=== PATIENT | male | born 1960 | race Caucasian/White ===

== ENCOUNTER → 2017-12-27 07:59 | Outpatient (CLI) | payer MEDICAID, SELFPAY | DX: I25.10 Atherosclerotic heart disease of native coronary artery without angina pectoris (principal); I25.5 Ischemic cardiomyopathy | CPT/HCPCS: 93306; Q9957; A4216; C8929 ==

== ENCOUNTER → 2018-02-27 09:08 | Outpatient (CLI) | payer MEDICAID, SELFPAY ==
[2018-02-27 11:10] LABS: AST(SGOT) 19 U/L (15-37); Alanine Aminotransfer ALT/SGPT 27 U/L (16-61); Albumin, Serum 3.8 g/dL (3.2-5.0); Alkaline Phosphatase 70 U/L (45-117); Bilirubin, Direct 0.11 mg/dL (0.00-0.30); CPK Total, Creatine Kinase 101 U/L (39-308); Cholesterol 131 mg/dL (200); Globulin 3.4 g/dL (2.2-4.2); High Density Lipoprotein 38 mg/dL; Protein, Total 7.2 g/dL (6.4-8.2); Triglycerides 143 mg/dL; Very Low Density Lipoprotein 29 mg/dL (5-40)
== END ==
DX: I25.10 Atherosclerotic heart disease of native coronary artery without angina pectoris (principal)
CPT/HCPCS: 36415; 80061; 80076; 82550

== ENCOUNTER → 2019-03-13 10:35 | Outpatient (CLI) | payer MEDICAID, SELFPAY ==
[2019-03-13 10:57] LABS: Hematocrit 43.3 % (40-54); Hemoglobin 14.4 g/dL (13.0-16.5); Mean Corp Hgb Conc 33.3 g/dL (32-36); Mean Corpuscular Hgb 28.8 pg (27.0-32.0); Mean Corpuscular Volume 86.6 fL (80-94); Mean Platelet Vol. 8.7 fl (6.2-12.0); Platelet Count 352 K/mm3 (150-450); RBC Distribution Width CV 13.2 % (11.6-14.6); RBC Distribution Width SD 41.4 fl (35.1-43.9); White Blood Count 8.6 K/mm3 (4.4-11.0)
[2019-03-13 11:30] LABS: AST(SGOT) 15 U/L (15-37); Alanine Aminotransfer ALT/SGPT 21 U/L (16-61); Albumin, Serum 3.8 g/dL (3.2-5.0); Alkaline Phosphatase 76 U/L (45-117); Anion Gap 7 (5-15); BUN 15 mg/dL (7-18); BUN/Creat Ratio 9.7 RATIO (10-20); Bilirubin, Direct 0.14 mg/dL (0.00-0.30); Calcium,Total 8.5 mg/dL (8.5-10.1); Chloride 106 mmol/L (98-107); Cholesterol 118 mg/dL (200); Creatinine, Serum 1.55 mg/dL (0.70-1.30); EST Glomerular Filtration Rate 49 mL/min (>60); Est Glom Filt Rate - Afr Amer 59 mL/min (>60); Globulin 3.3 g/dL (2.2-4.2); Glucose 98 mg/dL (74-106); High Density Lipoprotein 36 mg/dL; Potassium 4.6 mmol/L (3.5-5.1); Protein, Total 7.1 g/dL (6.4-8.2); Sodium Level 138 mmol/L (136-145); Thyroid Stim Hormone (TSH) 2.42 uIU/mL (0.358-3.74); Triglycerides 145 mg/dL; Very Low Density Lipoprotein 29 mg/dL (5-40)
== END ==
DX: E78.00 Pure hypercholesterolemia, unspecified (principal); I25.5 Ischemic cardiomyopathy; R53.82 Chronic fatigue, unspecified
CPT/HCPCS: 36415; 80048; 80061; 80076; 84443; 85027

== ENCOUNTER 2019-10-20 10:34 | Emergency (ER) | payer MEDICAID, SELFPAY ==
[2019-10-20 10:36] VITALS: BP 104/50; PULSE 78; RESP 16; TEMP 36.6; O2SAT 96; BMI 28.2
--- NOTE | 2019-10-20 11:06 | ED.DCSUM_ITS ---
- ER Visit Summary Date of Service: 10/20/19 Chief Complaint: Urinary frequency History of Present Illness: The patient is a 59 M who presents with urinary frequency that is been getting worse over the past 3 days. Patient also admits to some dysuria. Patient denies any hematuria. Patient admits to some pressure in his perineum. Patient states his pain is worse whenever he urinates. Patient states he has been having difficulty sleeping due to the urinary frequency. Patient denies any fevers or chills. Patient denies any nausea or vomiting. Patient denies any flank pain. Patient denies any abdominal pain. Patient denies any chest pain or shortness of breath. Physical Examination: Vital signs are stable. Patient is afebrile. Patient is in no acute distress. Oral mucosa is pink and moist. Neck is supple. Trachea is midline. There is no JVD noted. Heart was regular rate and rhythm. Lungs are clear and equal bilaterally. Abdomen is soft. Bowel sounds are normal. There is no tenderness. There is no rebound or guarding noted. Skin is warm dry. Cranial nerves II through XII are intact. There are no focal motor or sensory deficits noted. Extremities are intact. There is no calf tenderness or edema. Test Results: Urinalysis was ordered. Leukocyte esterase was 500 with positive nitrates. Occult blood was 250. There are 50-100 white blood cells and 25-50 red blood cells. Urine culture was ordered. Emergency Department Course and Treatment: Patient was given a dose of Bactrim here. Patient was given a prescription for Bactrim. Patient was referred to a primary care physician for follow-up care in 5 to 7 days. Patient understood and was agreeable with the plan. All questions were answered. Disposition: Discharge home Impression: Urinary tract infection This note was generated with [employer] dictation software. It may contain incorrect words, spelling, and punctuation that were not noted in review of the chart prior to signing ED Disposition - Plan for ED Patient: Disposition: Home or Assisted Living Diagnosis: Urinary tract infection Instructions: ED CYSTITIS Male Adult Prescriptions: Smz/Tmp Ds [Bactrim Ds] 1 tab PO BID #6 tab Prescription Printed Referrals: Kasandra Agosto MD [STAFF PHYSICIAN] - 5-7 Days
[2019-10-20 11:16] LABS: Mucous, Urine 0 SEEN /hpf (<or=2+)
[2019-10-20 11:17] LABS: Color, Urine Yellow (Yellow); Glucose, Dipstick Normal (Normal); Ketone-Dipstick 5 mg/dl (Negative); Leukocyte Esterase-Dipstick 500 /ul (Negative); Nitrite-Dipstick Positive (Negative); Occult Blood-Urine 250 /ul (Negative); Protein-Dipstick 100 mg/dl (Negative); Specific Gravity, Urine 1.025 (1.002-1.030); Urine Bilirubin Dipstick Negative (Negative); Urine Clarity Cloudy (Clear); Urine Urobilinogen Normal (Normal)
[2019-10-20 11:28] LABS: Bacteria 1+ /hpf (None Seen); Red Blood Cells-Urine 25-50 SEEN /hpf (0-5); Squamous Epithelial Cells - UA 0-5 SEEN /hpf (0-5); White Blood Cells 50-100 SEEN /hpf (0-5)
[2019-10-20 12:34] VITALS: BP 124/77; PULSE 68; RESP 15; O2SAT 98
[2019-10-20] MEDS: Smz/Tmp Ds Tablet 1 TABLET PO (12:35)
== END 2019-10-20 12:35 | disposition home or self-care (01) ==
PROVIDERS: Emergency Provider Emergency Medicine
DX: N39.0 Urinary tract infection, site not specified (principal); I10 Essential (primary) hypertension; E78.00 Pure hypercholesterolemia, unspecified; Z79.899 Other long term (current) drug therapy
CPT/HCPCS: 81001; 99283

== ENCOUNTER 2019-12-02 07:38 | Observation (INO) | payer MEDICAID, SELFPAY ==
[2019-12-02] VITALS (12 sets, daily range): BP systolic 97–144; BP diastolic 60–85; PULSE 60–89; RESP 12–18; TEMP 36–37.1; O2SAT 92–98; BMI 28.2
--- NOTE | 2019-12-02 | CALC_PTH ---
PATIENT: KAIDEN MILLER LOC: MS3 U#:[id number] AGE/SX: 59/M ROOM: GA318 RE12/02/[address]: Dr. Román German MD : 1960 BED: 1 DIS: 12/03/2019 SPEC #: [id number] RECD: 12/02/19 16:16 STATUS: ULISSES JOE #: [id number] WARREN: 12/02/19 00:[address]: Domingo Nelson DEPT: SURGICAL PATHOLOGY RECD BY: Kulwant Vigil ENTERED: 12/03/19 09:32 SP TYPE: Calculi OTHR DR: MD Dr. Antonella Tay MD Dr. Prakash Chand, MD Tissues: CALCULI Procedures: Surgery Specimen Level I HEADER OPERATION: Cysto, insertion stent, left ureteroscopy, laser left ureter PRE-OP DIAGNOSIS: Obstructing left ureteral calculi TISSUE SUBMITTED: Renal calculi RICARDO DIAGNOSIS Fragments of stone, clinically left ureteral calculi submitted for analysis. MARTHA:rene 12/03/19 COMMENT The calculus is submitted in its entirety for chemical stone analysis. The results from this study will be reported separately. GROSS DESCRIPTION Received is one container labeled with the patient's name and designated renal calculi. The specimen consists of two fragments of brownish-black stone measuring 0.5 x 0.3 x 0.3 cm. The entire specimen is submitted for stone analysis. / MARTHA:rene 12/03/19 CPT: 59965
--- NOTE | 2019-12-02 07:56 | CT_ITS ---
STUDY: CT ABDOMEN AND PELVIS WITHOUT CONTRAST REASON FOR EXAM: Male, 59 years old. BILAT FLANK PAIN, DYSURIA, URINARY FREQUENCY, PREV SD WITH CABG RADIATION DOSAGE (If Supplied By Facility): CTDIvol = ( 14.62 ) mGy, DLP = ( 702.35 ) mGycm TECHNIQUE: Transaxial images were obtained from the dome of the diaphragm to the symphysis pubis without oral contrast, and without intravenous contrast. Sagittal and coronal images were reconstructed. Individualized dose optimization techniques were used for this CT. COMPARISON: None. FINDINGS: The visualized lung bases are unremarkable. The visualized portions of the heart are within normal limits. Scattered low density nodules are seen throughout the liver suggestive of a multiple small cysts. The largest cyst measures 2.4 cm x 2.3 cm and is along the inferior medial portion of the right lobe of the liver. Normal gallbladder and extrahepatic biliary system. Normal spleen. Normal pancreas. Normal bilateral adrenal glands. There is a 6.9 mm calculus in the lower pole calyx of the right kidney. There is also evidence of a 2.1 cm x 2.4 cm cyst in the inferior lateral portion of the right kidney. There is a marked degree of left hydronephrosis and hydroureter due to a 1.3 cm x 0.8 cm calculus at the left ureterovesical junction. There is a moderate-sized hiatal hernia. Normal small intestine. There are multiple colonic diverticula consistent with diverticulosis. The appendix is visualized and appears normal. There is diffuse atherosclerotic calcification of the abdominal aorta and its major visceral branches, without a demonstrated aneurysm. Normal inferior vena cava. Normal retroperitoneum. Normal urinary bladder. There is enlargement of the prostate gland. It measures 4 cm x 3.5 cm. Normal abdominal wall. There are mild degenerative changes of the visualized lumbar spine. There is evidence of a spondylolysis of the pars interarticularis of the L5 vertebrae. CT/Abdomen/Pelvis without Cont IMPRESSION: 1.3 cm x 0.8 cm calculus at the left ureterovesical junction causing moderate degree of left hydronephrosis and hydroureter. Right renal cyst and a nonobstructive intrarenal calculus. Multiple hepatic cysts. Electronically Signed: Pernell Sin, at 8:54 EDT , Service support ,
[2019-12-02 08:03] LABS: Absolute Neutrophil Count 8.9 X10^3/uL (2.0-7.7); Basophil# 0.11 X10^3/uL; Basophil% 0.9 % (0-1); Eosinophil# 0.21 X10^3/uL; Eosinophils% 1.7 % (0-5); Hematocrit 37.2 % (40-54); Hemoglobin 12.2 g/dL (13.0-16.5); Lymphocyte % 13.2 % (19-41); Mean Corp Hgb Conc 32.8 g/dL (32-36); Mean Corpuscular Hgb 28.6 pg (27.0-32.0); Mean Corpuscular Volume 87.1 fL (80-94); Monocyte# 1.27 X10^3/uL; Monocyte% 10.5 % (0-10); NRBC Flagged by Analyzer 0 % (0-5); Neutrophil # 8.87 X10^3/uL (2.7-7.7); Platelet Count 580 K/mm3 (150-450); RBC Distribution Width CV 13.5 % (11.6-14.6); RBC Distribution Width SD 42.7 fl (35.1-43.9); Red Blood Count 4.27 M/mm3 (4.6-6.2); White Blood Count 12.1 K/mm3 (4.4-11.0)
[2019-12-02 08:11] LABS: Anion Gap 6 (5-15); BUN 22 mg/dL (7-18); BUN/Creat Ratio 16.4 RATIO (10-20); Calcium,Total 9.2 mg/dL (8.5-10.1); Chloride 102 mmol/L (98-107); Creatinine, Serum 1.34 mg/dL (0.70-1.30); EST Glomerular Filtration Rate 58 mL/min (>60); Est Glom Filt Rate - Afr Amer 70 mL/min (>60); Estimated Creatinine Clearance 69.01 ml/min; Glucose 106 mg/dL (74-106); Potassium 4.3 mmol/L (3.5-5.1); Sodium Level 136 mmol/L (136-145)
[2019-12-02 08:24] LABS: Color, Urine Yellow (Yellow); Glucose, Dipstick Normal (Normal); Ketone-Dipstick Negative (Negative); Leukocyte Esterase-Dipstick 500 /ul (Negative); Mucous, Urine 0 SEEN /hpf (<or=2+); Nitrite-Dipstick Positive (Negative); Occult Blood-Urine 150 /ul (Negative); Protein-Dipstick 30 mg/dl (Negative); Urine Bilirubin Dipstick Negative (Negative); Urine Clarity Sl. Cloudy (Clear); Urine Urobilinogen Normal (Normal)
[2019-12-02 08:33] LABS: Bacteria 1+ /hpf (None Seen); Red Blood Cells-Urine 10-25 SEEN /hpf (0-5); Squamous Epithelial Cells - UA 0-5 SEEN /hpf (0-5); White Blood Cells 50-100 SEEN /hpf (0-5)
--- NOTE | 2019-12-02 08:45 | ED.RN ---
DR FONTANA PAGED THROUGH THE MEDICAL RECORDS SPECIALIST
--- NOTE | 2019-12-02 08:57 | ED.DCSUM_ITS ---
- ER Visit Summary Date of Service: 12/02/19 Chief Complaint: [Dysuria, back pain] History of Present Illness: The patient is a 59 M [resents to the emergency department with symptoms for over 2 months. Patient states that he has been on several rounds of antibiotics without resolution of symptoms. Patient states that he was attempting to see a urologist however he did not have a primary care physician and required a referral therefore he was unable to see urology. Patient states that he is been having a hard time sleeping at night secondary the pain. He has had some intermittent chills. He denies any fevers. Patient does have history of chronic back pain and history of coronary artery disease. Patient's had prior CABG. He has no known drug allergies. Patient states that he believes he has a kidney stone although he is never had them before.] Physical Examination: [HESHAREE-PERRLA, EOMI. Cranial nerves II through XII grossly intact. TMs clear. Mucous membranes moist. No adenopathy. Cardiovascular-regular rate and rhythm without murmur or ectopy Lungs-clear to auscultation, chest wall stable without crepitus or subcu emphysema Abdomen-normoactive bowel sounds, soft, nontender, no rebound or rigidity, no peritoneal signs. Back exam-no tenderness on palpation of the thoracic or lumbar spine. He does have some CVA tenderness on the left. Negative straight leg raises. Deep tendon reflexes plus 2 out of 4 bilaterally at the patella and Achilles. Extremities-intact ?4, normal range of motion, normal pulses, atraumatic] Test Results: [CBC with differential obtained showed a slightly elevated white count 12.1, hemoglobin 12, hematocrit 37, platelets 580. Chemistries unremarkable. BUN 22 and creatinine 1.34. Urinalysis is positive for 500 cassette esterase as well as nitrites. Patient had 50-100 WBCs as well as 10-25 RBCs and +[address] flank obtained read by myself and awaiting official report from radiology however patient is noted to have a 12.5 mm stone at the left UVJ with severe hydroureter and hydronephrosis. Patient also noted to have some thickening of the bladder wall which may be related to infectious process.] Emergency Department Course and Treatment: [IV line was established. Patient did not want a thing for pain initially. Patient was given Rocephin 1 g IV.] Treatment Plan: [Patient was discussed with urology who will have me admit patient to the hospitalist and he will be placed on the schedule for later today to have a stent placed.] Disposition: [Admit] Impression: [Urinary tract infection Left ureteral stone with obstruction and hydroureter/hydronephrosis] This note was generated with [employer] dictation software. It may contain incorrect words, spelling, and punctuation that were not noted in review of the chart prior to signing ED Disposition - Plan for ED Patient: Referrals: Antonella Juniro MD [Primary Care Provider] -
[2019-12-02] MEDS: 0.9% Normal Saline 1,000 ML 125 ML IV (09:10)
--- NOTE | 2019-12-02 09:12 | PCM.HP.STD ---
Problem List (1) Ureteral calculus, left Status: Acute (2) Shoulder injury Status: Acute Qualifiers: Encounter type: initial encounter Laterality: left Qualified Code(s): S49.92XA - Unspecified injury of left shoulder and upper arm, initial encounter; S49.92XA - Unspecified injury of left shoulder and upper arm, initial encounter (3) CAD (coronary artery disease) Status: Acute (4) Chest pain Status: Acute (5) Hydronephrosis of left kidney Status: Acute History of Present Illness Date of Admission: 12/02/19 Chief Complaint: UTI The patient is a 59 year old M with no prior history of kidney stone came to ER with back pain for last 2 months. Patient complain of right lumbar back pain and also left back pain. Patient also increased frequency, urgency and dysuria intermittently for 2 months. Mild chills but no fever. No family history of kidney stone. Patient denies history of parathyroidism. In the ED, CT shows 1.3 x 0.8 similar calculus at the left UV junction causing moderate degrees of left hydronephrosis and hydroureter. Right renal cyst and nonobstructive intrarenal calculus in left lower pole calyx. Patient was taken to the OR and was found obstructive ureteric calculi impacted. Had left ureteroscopy, laser lithotripsy of stone, basket extraction of fragments and left retrograde pyelogram and left stent placement. On IV ceftriaxone started in ER. Past Medical History Medical History: Medical History (Last Reviewed 12/02/19 @ 10:[address] Domingo Nelson MD) Heart disease I51.9 Allergies sulfamethoxazole [From Bactrim] Adverse Reaction (Verified 12/02/19 07:53) INTERACTS WITH BP AND HEART MEDS / DID NOT WORK trimethoprim [From Bactrim] Adverse Reaction (Verified 12/02/19 07:53) INTERACTS WITH BP AND HEART MEDS / DID NOT WORK Home Medications: Ambulatory Orders Medication Instructions Recorded Aspirin [Aspirin, Baby] 81 mg PO DAILY@0800 08/11/14 Carvedilol [Coreg] 3.125 mg PO BID 08/11/14 Lisinopril [Zestril] 5 mg PO DAILY 08/11/14 Nitroglycerin (INPATIENT USE) 0.4 mg SUBLINGUAL Q5M PRN 08/11/14 [Nitrostat] Rosuvastatin Calcium [Crestor] 40 mg PO DAILY 10/20/19 Surgical History: Surgical History (Last Reviewed 12/02/19 @ 10:[address] Domingo Nelson MD) History of heart bypass surgery Z95.1 Surgical History: herniorrhaphy, - - nose, lip and thumb reattached. Hemmoroid drained x 2. Smoking Status: Current every day smoker Alcohol: Occasional Drugs: None - *Family History Maternal History Items: - - No family history of kidney stone in first-degree family relative. Review of Systems Constitutional: Reports: Chills. Denies: Fever, Weight Change HEENT: Denies: Head Aches, Sinus Congestion, Sinus Drainage Cardiovascular: Denies: Chest Pain, Palpitations Respiratory: Denies: Cough, Shortness of breath at rest, Sputum production Gastrointestinal: Denies: Abdominal Pain, Nausea, Vomiting Genitourinary: Reports: Dysuria, Frequency, Urgency. Denies: Hesitancy, Retention Musculoskeletal: Reports: Back Pain. Denies: Joint Pain, Joint Tenderness Skin: Denies: Rash, Wounds Neurological: Denies: Numbness, Tingling, Focal weakness Psychiatric: Denies: Anxiety, Depression, Homicidal Ideations, Suicidal Ideations Hematologic/ Lymphatic: Denies: Easy Bruising, Easy Bleeding VTE Information - Inpt Only VTE Present on Admission: No VTE Mechan Device Prophylaxis: None VTE Pharm Prophylaxis ordered?: Yes Patient Problems: Active and Suspected Problems (Last Reviewed 12/02/19 @ 10:[address] Domingo Nelson MD) Ureteral calculus, left (Acute) Hydronephrosis of left kidney (Acute) - Physical Exam Vitals/I&O's: Vital Signs Temp Pulse Resp BP Pulse Ox 96.8 F L 71 17 144/85 H 98 12/02/19 07:39 12/02/19 07:39 12/02/19 07:39 12/02/19 07:39 12/02/19 07:39 Oxygen Delivery Method Room Air Weight: 220 lb Body Mass Index (BMI) 28.2 General: Alert, Oriented x3, Cooperative HEENT: Atraumatic, PERRLA, EOMI, Normocephalic Oral: No Gingival or Mucosal Lesions/ Ulcerations, Dry Mucosa Neck: Supple, No JVD, Negative Carotid Bruits, Negative Hepatojugular Reflux Lungs: Clear to auscultation, Normal air movement, No rhonchi, No wheeze, No rales Cardiovascular: Regular rate, Regular Rhythm, Normal S1, Normal S2, No murmurs, - - Coronary bypass scar Abdomen: Bowel Sounds Present, Soft, Non Tender, Non-Distended, - - : Mild tenderness on right paralumbar area. No tenderness or fullness in the left renal angle. No suprapubic tenderness. Urine is cloudy and foul-smelling. Extremities: No edema, Capillary Refill Less than 3 Seconds Skin: No rashes, No breakdown Musculoskeletal: No Tenderness to Palpation of Joints or Extremities Neurological: Cranial nerves II-XII grossly intact, Deep Tendon Reflexes 2+/4 and Symmetrical, Neuro grossly intact, Motor Exam 5/5 strength throughout Psych/Mental Status: Normal Affect, Appropriate Laboratory Results 12/02/19 07:50: WBC 12.1 H, RBC 4.27 L, Hgb 12.2 L, Hct 37.2 L, MCV 87.1, MCH 28.6, MCHC 32.8, RDW Std Deviation 42.7, RDW Coeff of Yusef 13.5, Plt Count 580 H, MPV 8.0, Immature Gran % (Auto) 0.700, Neut % (Auto) 73.0 H, Lymph % (Auto) 13.2 L, [place] % (Auto) 10.5 H, Eos % (Auto) 1.7, Baso % (Auto) 0.9, Absolute Neuts (auto) 8.9 H, Absolute Lymphs (auto) 1.60, Nucleated RBC % 0 12/02/19 07:50: Sodium 136, Potassium 4.3, Chloride 102, Carbon Dioxide 28.0, Anion Gap 6, BUN 22 H, Creatinine 1.34 H, Estim Creat Clear Calc 69.01, Est GFR (MDRD) Af Amer 70, Est GFR (MDRD) Non-Af 58 L, BUN/Creatinine Ratio 16.4, Glucose 106, Calcium 9.2 12/02/19 08:16: Urine Color Yellow, Urine Clarity Sl. Cloudy, Urine pH 6.0, Ur Specific [place] 1.010, Urine Protein 30 H, Urine Glucose (UA) Normal, Urine Ketones Negative, Urine Occult Blood 150 H, Urine Nitrite Positive H, Urine Bilirubin Negative, Urine Urobilinogen Normal, Ur Leukocyte Esterase 500 H, Urine RBC 10-25 SEEN, Urine WBC 50-100 SEEN, Ur Squamous Epith Cells 0-5 SEEN, Urine Bacteria 1+, Urine Mucus 0 SEEN Current Medications Sodium Chloride () 1,000 mls @ 125 mls/hr IV .Q8H GRACIELA Last Admin: 12/02/19 09:10 Dose: 125 mls/hr Documented by: Ceftriaxone Sodium 2 gm/ (Sodium Chloride) 50 mls @ 100 mls/hr IV X1 ONE Stop: 12/02/19 09:39 Assessment/Plan All Active Problems (Last Reviewed 12/02/19 @ 10:[address] Domingo Nelson MD) Ureteral calculus, left (Acute) Hydronephrosis of left kidney (Acute) Shoulder injury (Acute) CAD (coronary artery disease) (Acute) Chest pain (Acute) The patient is a 59 year old M with no prior history of kidney stone came to ER with back pain for last 2 months along with no urine tract symptoms of dysuria, increased frequency urgency consistent and CT finding consistent with left UV junction calculus with obstructive left hydroureter and hydronephrosis and complicated UTI 1. Impacted and obstructive left UV junction calculus 1.3 x 0.8 cm with left hydroureter and hydronephrosis with complicated UTI: Patient is being admitted to [facility] after operative procedure.Had left ureteroscopy, laser lithotripsy of stone, basket extraction of fragments and left retrograde pyelogram and left stent placement. On IV ceftriaxone started in ER and is continued. UA shows positive nitrite, WBC 5200 cells, RBC 10-25 cells with 1+ bacteria. Urine culture pending. The patient is spikes fever, require blood cultures x2. Denies previous history of UTI and stone 2. Coronary artery status post stent and two-vessel bypass surgery in 2015.: No chest pain or shortness of breath. On aspirin, Coreg, lisinopril and rosuvastatin continued. 3. Other chronic comorbidities including shoulder injury. Patient has tenderness along with reproducible pain along the CABG surgical scar and his ribs are tender since surgery. DVT prophylaxis: Lovenox 40 minutes subcu daily. Bilateral SCDs. Living will/advanced directive/end of life care: Patient does not have living will or advanced directive. His is power of utilization management nurse for health. After discussion of procedures involved with full code, DNR CC arrest and DNR CC, the patient opted for DNR-CC Arrest Patient does not want artificial life support including intubation, tube feed, ventilator and/chest compression, central venous catheter, vasopressor and DC shock if needed DNR CC arrest. Total time spent in qosf-[id number] encounter in discussion of advanced directive 16 minutes OBSV E&M: 57559 Initial observation care L3 Procedures: 93912 Advncd Care Plan 30 Min
[2019-12-02] MEDS: Ceftriaxone 2 GM in 0.9% NS 50 ML Minibag x1 IV (09:30)
--- NOTE | 2019-12-02 10:25 | PCM.CONS.U ---
Problem List (1) Ureteral calculus, left Status: Acute Reason for Consult Date of Consultation: 12/02/19 Reason for Consultation: Obstructing ureteral calculi with a UTI History of Present Illness: The patient is a 59 year old male who presents the hospital with dysuria and very purulent urine had a CT scan done to demonstrate obstructing stone the distal left ureter he is to be admitted for IV antibiotics and work and taken to surgery today and place a stent on the left side. Past Medical History Medical History: Medical History (Last Reviewed 12/02/19 @ 10:[address] Domingo Nelson MD) Heart disease I51.9 Allergies sulfamethoxazole [From Bactrim] Adverse Reaction (Verified 12/02/19 07:53) INTERACTS WITH BP AND HEART MEDS / DID NOT WORK trimethoprim [From Bactrim] Adverse Reaction (Verified 12/02/19 07:53) INTERACTS WITH BP AND HEART MEDS / DID NOT WORK Home Medications: Ambulatory Orders Medication Instructions Recorded Aspirin [Aspirin, Baby] 81 mg PO DAILY@0800 08/11/14 Carvedilol [Coreg] 3.125 mg PO BID 08/11/14 Lisinopril [Zestril] 5 mg PO DAILY 08/11/14 Nitroglycerin (INPATIENT USE) 0.4 mg SUBLINGUAL Q5M PRN 08/11/14 [Nitrostat] Rosuvastatin Calcium [Crestor] 40 mg PO DAILY 10/20/19 Surgical History: Surgical History (Last Reviewed 12/02/19 @ 10:[address] Domingo Nelson MD) History of heart bypass surgery Z95.1 Surgical History: herniorrhaphy, - - nose, lip and thumb reattached. Hemmoroid drained x 2. Smoking Status: Current every day smoker - *Family History Maternal History Items: No pertinent history Review of Systems Constitutional: Denies: Chills, Fever, Weight Change HEENT: Denies: Head Aches, Sinus Congestion, Sinus Drainage Cardiovascular: Denies: Chest Pain, Palpitations Respiratory: Denies: Cough, Shortness of breath at rest, Sputum production Gastrointestinal: Denies: Abdominal Pain, Nausea, Vomiting Genitourinary: Denies: Dysuria Musculoskeletal: Denies: Joint Pain, Joint Tenderness Skin: Denies: Rash, Wounds Neurological: Denies: Numbness, Tingling, Focal weakness Psychiatric: Denies: Anxiety, Depression, Homicidal Ideations, Suicidal Ideations Hematologic/ Lymphatic: Denies: Easy Bruising, Easy Bleeding Physical Exam - Physical Exam Vital Signs Temp 97.4 F L 12/02/19 10:20 Pulse 60 12/02/19 10:20 Resp 14 12/02/19 10:20 BP 126/81 H 12/02/19 10:20 Pulse Ox 97 12/02/19 10:20 Intake & Output 11/30/19 12/01/19 12/02/19 23:59 23:59 23:59 Intake Total 50 / 50 Balance 50 / 50 Weight: 99.79 kg Intake: Intake, IV Amount 50 / 50 Ceftriaxone 2 GM In 0.9% Normal 50 / 50 Saline 50 ML @ 100 mls/hr IV X1 ONE Rx#:[id number] General: Alert, Oriented x3 HEENT: Atraumatic Oral: Moist Mucosa Neck: Supple Lungs: Normal air movement Laboratory Tests Past 24 Hrs 12/02/19 12/02/19 12/02/19 07:50 07:50 08:16 WBC 12.1 H RBC 4.27 L Hgb 12.2 L Hct 37.2 L MCV 87.1 MCH 28.6 MCHC 32.8 RDW Std Deviation 42.7 RDW Coeff of Yusef 13.5 Plt Count 580 H MPV 8.0 Immature Gran % (Auto) 0.700 Neut % (Auto) 73.0 H Lymph % (Auto) 13.2 L [place] % (Auto) 10.5 H Eos % (Auto) 1.7 Baso % (Auto) 0.9 Absolute Neuts (auto) 8.9 H Absolute Lymphs (auto) 1.60 Nucleated RBC % 0 Sodium 136 Potassium 4.3 Chloride 102 Carbon Dioxide 28.0 Anion Gap 6 BUN 22 H Creatinine 1.34 H Estim Creat Clear Calc 69.01 Est GFR (MDRD) Af Amer 70 Est GFR (MDRD) Non-Af 58 L BUN/Creatinine Ratio 16.4 Glucose 106 Calcium 9.2 Urine Color Yellow Urine Clarity Sl. Cloudy Urine pH 6.0 Ur Specific [place] 1.010 Urine Protein 30 H Urine Glucose (UA) Normal Urine Ketones Negative Urine Occult Blood 150 H Urine Nitrite Positive H Urine Bilirubin Negative Urine Urobilinogen Normal Ur Leukocyte Esterase 500 H Urine RBC 10-25 SEEN Urine WBC 50-100 SEEN Ur Squamous Epith Cells 0-5 SEEN Urine Bacteria 1+ Urine Mucus 0 SEEN Assessment/Plan All Active Problems (Last Updated 04/23/17 @ 12:51 by Magnolia Noble) Ureteral calculus, left (Acute) Shoulder injury (Acute) CAD (coronary artery disease) (Acute) Chest pain (Acute) Plan for cystoscopy and left stent placement he will be admitted by hospitalist for IV antibiotics and further care n.p.o. for surgery.
--- NOTE | 2019-12-02 10:26 | NURSING ---
GOING TO [id number]
--- NOTE | 2019-12-02 10:28 | ED.RN ---
report given to Kady in [facility].
[2019-12-02] MEDS: Lactated Ringers 1,000 ML 100 ML IV ×2 (14:00→16:48)
[2019-12-02] MEDS: Lidocaine Jelly 2% 20 ML Syringe (URO-JET) 20 APPLIC (14:29)
--- NOTE | 2019-12-02 15:53 | PCM.OPRPT ---
Problem List (1) Ureteral calculus, left Status: Acute Report of Operation Date of Procedure: 12/02/19 Pre-Operative Diagnosis: Impacted left ureteral calculi and cystitis Post-Operative Diagnosis: Same Surgery/Procedure Performed:: Cystoscopy, attempted left stent placement, left ureteroscopy laser lithotripsy of stone, basket extraction of fragments, left retrograde pyelogram interpretation fluoroscopic images, left stent placement Description of Surgical Findings:: 59-year-old male presented to the emergency room today with abdominal pain frequency urgency and cystitis, a CT scan was done that demonstrated severe left hydroureteronephrosis down to the impacted stone in the distal ureter. Because of this I recommended we taken the surgery to place a stent and then at a later setting once we get the infection cleared treat him with ureteroscopy and laser lithotripsy. Patient agreed for stent placement. Patient was taken back to the operating room after smooth induction of general anesthesia he was placed in dorsolithotomy position, the penis and testicles were prepped and draped in usual sterile fashion, went into the bladder with a 21 Montenegrin rigid cystourethroscope, entire length the urethra is normal once I got into the bladder the bladder was normal the trigone was normal the left hemitrigone was elevated and swollen but I was able to find a ureteral ureteral orifice, I cannulated the left ureter orifice and tried advance a wire past the stone but the wire would not go past the stone and coiled multiple times in the ureter proximal to the stone the stone was impacted. I did a retrograde pyelogram see contrast barely squeak past the stone I then chose get some with a wire past the stone but again it was so tight that there was no way as can be able to place a stent so at this point I elected to proceed with ureteroscopy to see if I could laser the stone free as I got into the distal ureter there was a lot of inflammation around the ureter and found I was able to encounter the stone in the distal ureter and then I used a 270 ?m laser fiber and started lasering the stone very carefully in the middle as I lasered the stone the pieces broke off and finally I see passed a stone into a dilated ureter but the stone was stuck on the edges of the ureter so eventually had to laser the stone all the way around and lasered the stone free of the ureter itself and finally fell off the ureter it is basically impacted into the valencia of the ureter. Once the stone was free inside the ureter then I loaded this a wire through the scope put a wire up into the kidney very tortuous long dilated ureter I ended up putting a 6 Montenegrin by 28 cm stent I left the stent in place in the neck stent next of the stent I went with a semirigid 8 Montenegrin Olympus offset ureteroscope and continue lasering the stone and then I basketed all the fragments out that were visible in the distal ureter the stone was since had been impacted for a long time in the distal ureter causing severe hydronephrosis and dilation of the ureter. At this point we will leave the stent in at least a good month to let the ureter heal completely. I drained the bladder and the ureter stent was left in the ureter the stent went up fdc up the ureter such a dilated ureter then make it elevated kidney but this past the area with a stone was in the distal ureter and he will stay in the hospital for antibiotics to be able to go home with antibiotics once he is stable and I will go talk to the family regarding the findings. Contrast was used to do a retrograde pyelogram to confirm the location of the stone in the diet document the dilation of the ureter and the impaction of the stone in the distal ureter. Type of Anesthesia:: General Drains: stent left 6fr x 28cm - Admit VTE Documentation VTE Present on Admission: No VTE Mechan Device Prophylaxis: SCD's
[2019-12-02 17:15] LABS: Magnesium 2.3 mg/dL (1.6-2.6)
[2019-12-02] MEDS: 0.9% Normal Saline 1,000 ML 100 ML IV (17:43)
[2019-12-02] MEDS: Carvedilol 3.125 MG TABLET PO (21:28)
[2019-12-02] MEDS: Atorvastatin Calcium 80 MG Tablet PO (21:28)
[2019-12-03 01:00] VITALS: BP 114/75; PULSE 70; RESP 16; TEMP 36.6; O2SAT 94
[2019-12-03 05:00] VITALS: BP 120/68; PULSE 83; RESP 16; TEMP 37; O2SAT 97
[2019-12-03 06:06] LABS: Absolute Lymphocyte Count 0.96 X10^3/uL (0.83-4.51); Basophil# 0.06 X10^3/uL; Basophil% 0.4 % (0-1); Hematocrit 32.3 % (40-54); Hemoglobin 10.3 g/dL (13.0-16.5); Lymphocyte # 0.96 X10^3/ul (4.0); Lymphocyte % 6.5 % (19-41); Mean Corp Hgb Conc 31.9 g/dL (32-36); Mean Corpuscular Hgb 27.6 pg (27.0-32.0); Mean Corpuscular Volume 86.6 fL (80-94); Mean Platelet Vol. 7.9 fl (6.2-12.0); Monocyte# 0.77 X10^3/uL; Monocyte% 5.2 % (0-10); NRBC Flagged by Analyzer 0 % (0-5); Neutrophil # 13.01 X10^3/uL (2.7-7.7); Neutrophil % 87.4 % (47-70); Platelet Count 461 K/mm3 (150-450); RBC Distribution Width CV 13.6 % (11.6-14.6); RBC Distribution Width SD 43.2 fl (35.1-43.9); Red Blood Count 3.73 M/mm3 (4.6-6.2); White Blood Count 14.9 K/mm3 (4.4-11.0)
[2019-12-03] MEDS: Enoxaparin 40 MG/0.4 ML Syringe SC (06:27)
[2019-12-03 06:33] LABS: Anion Gap 6 (5-15); BUN 13 mg/dL (7-18); BUN/Creat Ratio 12.4 RATIO (10-20); Calcium,Total 8.4 mg/dL (8.5-10.1); Chloride 105 mmol/L (98-107); Creatinine, Serum 1.05 mg/dL (0.70-1.30); EST Glomerular Filtration Rate 77 mL/min (>60); Est Glom Filt Rate - Afr Amer 93 mL/min (>60); Estimated Creatinine Clearance 88.07 ml/min; Glucose 125 mg/dL (74-106); Potassium 4.3 mmol/L (3.5-5.1); Sodium Level 139 mmol/L (136-145)
[2019-12-03] MEDS: 0.9% Normal Saline 1,000 ML 100 ML IV (06:49)
--- NOTE | 2019-12-03 07:40 | PCM.CONS.B ---
Problem List (1) Ureteral calculus, left Status: Acute - Consult Date of Consult: 12/03/19 - Reason for Consult s/p laser of stone and stent doing well, no signs of systemic infection had UTI but I think he can go home with empiric antibiotics. follow up in my office has a stent.
[2019-12-03 08:47] VITALS: BP 105/66; PULSE 68; RESP 18; TEMP 36.9; O2SAT 95
[2019-12-03] MEDS: Carvedilol 3.125 MG TABLET PO (08:50)
[2019-12-03] MEDS: Aspirin 81 MG TAB.CHEW PO (08:50)
[2019-12-03] MEDS: Lisinopril 5 MG Tablet PO (08:50)
--- NOTE | 2019-12-03 09:01 | DS.PCM_ITS ---
Discharge Date and Diagnosis - Problem List Patient Problems: Active and Suspected Problems (Last Reviewed 12/02/19 @ 10:[address] Domingo Nelson MD) Ureteral calculus, left (Acute) Hydronephrosis of left kidney (Acute) Date of Admission: 12/02/19 Date of Discharge: 12/03/19 - Primary Discharge Diagnosis Acute Problems: Active Problems (Last Reviewed 12/02/19 @ 10:[address] Domingo Nelson MD) Ureteral calculus, left (Acute) Hydronephrosis of left kidney (Acute) Hospital Course and Treatment Imaging Results: Clinical Impression(s) from Imaging Studies Abdomen/Pelvis CT 12/02/19 07:56 IMPRESSION: 1.3 cm x 0.8 cm calculus at the left ureterovesical junction causing moderate degree of left hydronephrosis and hydroureter. Right renal cyst and a nonobstructive intrarenal calculus. Multiple hepatic cysts. Electronically Signed: Pernell January, at 8:54 EDT , Service support , Summary of Care Provided: The patient is a 59 year old M who presented with bilateral flank pain found to Impacted left ureteral calculi and cystitis 1. Impacted left ureteral calculi with cystitis ?s/p laser of stone and stent discharged home with Cipro with plans for patient to follow-up with Dr Nelson as outpatient 2. Coronary artery disease ?With previous CABG and subsequent stent placement 3. DVT prophylaxis ?Lovenox Patient Problems: Active and Suspected Problems (Last Reviewed 12/02/19 @ 10:[address] Domingo Nelson MD) Ureteral calculus, left (Acute) Hydronephrosis of left kidney (Acute) - Physical Exam Vitals/I&O's: Vital Signs Temp Pulse Resp BP Pulse Ox 98.5 F 68 18 105/66 95 12/03/19 08:47 12/03/19 08:47 12/03/19 08:47 12/03/19 08:47 12/03/19 08:47 Oxygen Delivery Method Room Air Weight: 99.79 kg Body Mass Index (BMI) 28.2 Intake and Output for Last 24 Hours 12/01/19 12/02/19 12/03/19 23:59 23:59 23:59 Intake Total 2049 2610 / 261 Output Total 1100 / 1325 700 / 700 Balance 950 / 925 1909 / 1909 General: Alert HEENT: Atraumatic Neck: Supple Lungs: Normal air movement Cardiovascular: Regular rate, Regular Rhythm Neurological: Neuro grossly intact Laboratory Results 12/02/19 07:50: Magnesium 2.3 12/03/19 05:59: WBC 14.9 H, RBC 3.73 L, Hgb 10.3 L, Hct 32.3 L, MCV 86.6, MCH 27.6, MCHC 31.9 L, RDW Std Deviation 43.2, RDW Coeff of Yusef 13.6, Plt Count 461 H, MPV 7.9, Immature Gran % (Auto) 0.500, Neut % (Auto) 87.4 H, Lymph % (Auto) 6.5 L, Glascock % (Auto) 5.2, Eos % (Auto) 0.0, Baso % (Auto) 0.4, Absolute Neuts (auto) 13.0 H, Absolute Lymphs (auto) 0.96, Nucleated RBC % 0 12/03/19 05:59: Sodium 139, Potassium 4.3, Chloride 105, Carbon Dioxide 28.0, Anion Gap 6, BUN 13, Creatinine 1.05, Estim Creat Clear Calc 88.07, Est GFR (MDRD) Af Amer 93, Est GFR (MDRD) Non-Af 77, BUN/Creatinine Ratio 12.4, Glucose 125 H, Calcium 8.4 L Current Medications Acetaminophen (Tylenol) 650 mg PO Q6H PRN PRN PRN Reason: Pain Score 1-10/Temp > 100.7 F Al Hydroxide/Mg Hydroxide (Mylanta Ii) 30 ml PO Q6H PRN PRN PRN Reason: Gastric Burning Aspirin (Aspirin, Baby) 81 mg PO DAILY@0800 [facility] Last Admin: 12/03/19 08:50 Dose: 81 mg Documented by: Atorvastatin Calcium (Lipitor) 80 mg PO QHS [facility] Last Admin: 12/02/19 21:28 Dose: 80 mg Documented by: Carvedilol (Coreg) 3.125 mg PO BID [facility] Last Admin: 12/03/19 08:50 Dose: 3.125 mg Documented by: Enoxaparin Sodium (Lovenox) 40 mg SC DAILY@0600 [facility] Last Admin: 12/03/19 06:27 Dose: 40 mg Documented by: Sodium Chloride () 1,000 mls @ 100 mls/hr IV .Q10H [facility] Last Infusion: 12/03/19 08:55 Dose: 0 mls/hr Documented by: Ceftriaxone Sodium 2 gm/ (Sodium Chloride) 50 mls @ 100 mls/hr IV Q24 [facility] Last Admin: 12/03/19 08:52 Dose: 100 mls/hr Documented by: Lisinopril (Zestril) 5 mg PO DAILY [facility] Last Admin: 12/03/19 08:50 Dose: 5 mg Documented by: Morphine Sulfate () 2 mg IV Q3H PRN PRN PRN Reason: Pain Score 6-10/10 Nitroglycerin (Nitrostat) 0.4 mg SUBLINGUAL Q5M PRN PRN Reason: CHEST PAIN Oxycodone HCl (Oxyir) 5 mg PO Q4H PRN PRN PRN Reason: Pain Score 4-5/10 Prochlorperazine Edisylate (Compazine Iv) 5 mg IV Q4H PRN PRN PRN Reason: Breakthrough nausea/vomiting Senna/Docusate Sodium (Senokot-S, Celia-Colace) 2 tablet PO BID PRN PRN PRN Reason: Constipation Sodium Chloride () 10 - 40 ml IV UD PRN PRN Reason: SALINE FLUSH Discharge Diet: No Restrictions Discharge Activity: Return to Normal Activity Home Medications: Medications to take at Discharge Aspirin [Aspirin, Baby] 81 mg PO DAILY@0800 08/11/14 Carvedilol [Coreg (Beta Nawaf)] 3.125 mg PO BID 08/11/14 Lisinopril [Zestril] 5 mg PO DAILY 08/11/14 Nitroglycerin (INPATIENT USE) [Nitrostat] 0.4 mg SUBLINGUAL Q5M PRN 08/11/14 Rosuvastatin Calcium [Crestor] 40 mg PO DAILY 10/20/19 Ciprofloxacin [Cipro] 500 mg PO BID #20 tab 12/03/19 Following Prescriptions Were Given to Patient: Ciprofloxacin [Cipro] 500 mg PO BID #20 tab Transmission Status: Pending to [facility] Primary Care Physician: Antonella Junior MD [Primary Care Provider] - Please follow up with your Primary Care Physician in: in 1-2 weeks Please Follow Up With: Domingo Nelson MD When: in 5-7 days Disposition: Home Minutes spent on discharge:: 35 Patient Condition:: Stable Medical Necessity - Tobacco Use Smoking Status: Former smoker Meaningful Use Info Meaningful Use Diagnoses (Choose all that apply): None applicable OBSV E&M: 55510 Observation care discharge
--- NOTE | 2019-12-03 09:02 | PCM.DC ---
- Discharge Diagnoses Current Active Problems: Current Active and Chronic Problems (Last Reviewed 12/02/19 @ 10:[address] Domingo Nelson MD) Ureteral calculus, left (Acute) Hydronephrosis of left kidney (Acute) You will use the following diet at home:: No restrictions Discharge Activity: Return to Normal Activity Allergies/Adverse Reactions: Allergies sulfamethoxazole [From Bactrim] Adverse Reaction (Verified 12/02/19 07:53) INTERACTS WITH BP AND HEART MEDS / DID NOT WORK trimethoprim [From Bactrim] Adverse Reaction (Verified 12/02/19 07:53) INTERACTS WITH BP AND HEART MEDS / DID NOT WORK Medications to take at Discharge Aspirin [Aspirin, Baby] 81 mg PO DAILY@0800 08/11/14 Carvedilol [Coreg (Beta Nawaf)] 3.125 mg PO BID 08/11/14 Lisinopril [Zestril] 5 mg PO DAILY 08/11/14 Nitroglycerin (INPATIENT USE) [Nitrostat] 0.4 mg SUBLINGUAL Q5M PRN 08/11/14 Rosuvastatin Calcium [Crestor] 40 mg PO DAILY 10/20/19 Ciprofloxacin [Cipro] 500 mg PO BID #20 tab 12/03/19 The following prescriptions were given: Ciprofloxacin [Cipro] 500 mg PO BID #20 tab Transmission Status: Pending to [facility] Primary Care Physician: Antonella Junior MD [Primary Care Provider] - Please follow up with your Primary Care Physician in: in 1-2 weeks Test Results: Test results from this visit will be discussed in further detail at your follow-up appointment, if applicable. Please Follow Up With: Domingo Nelson MD When: in 5-7 days Proposed Discharge Date: 12/03/19
[2019-12-24 15:58] LABS: Source KIDNEY
[2019-12-24 15:59] LABS: Ca Oxalate, Monohydrate 80; Size 3X2
[2019-12-24 16:04] LABS: Ca Oxalate, Dihydrate 10
== END 2019-12-03 09:57 | disposition home or self-care (01) ==
LOC: ED 08:53 → SDC 10:23 → AC 10:28 → SDC 16:48 → MS3 18:16
PROVIDERS: Urology; Admitting Provider Internal Medicine; Emergency Provider Emergency Medicine; PCP Family Medicine; Visit Provider Internal Medicine
PROC: (CPT 52356; principal; 2019-12-02 12:45)
DX: N13.6 Pyonephrosis (principal); I25.10 Atherosclerotic heart disease of native coronary artery without angina pectoris; Z95.1 Presence of aortocoronary bypass graft; Z79.899 Other long term (current) drug therapy; Z79.82 Long term (current) use of aspirin; I10 Essential (primary) hypertension; I25.2 Old myocardial infarction; Z87.891 Personal history of nicotine dependence; E78.00 Pure hypercholesterolemia, unspecified; K21.9 Gastro-esophageal reflux disease without esophagitis
CPT/HCPCS: 52356; 74176; 76000; 80048; 81001; 82360; 83735; 85025; 87086; 87088; 87186; 88300; 96361; 96365; 96366; 96372; 99218; 99251; 99285; J7030; J7120; A4216; C1769; C2617; G0378; G0463; J0696; J2405

== ENCOUNTER 2019-12-30 05:59 | Day surgery (SDC) | payer MEDICAID, SELFPAY ==
[2019-12-02 10:20] VITALS: BMI 28.2
[2019-12-30] VITALS (7 sets, daily range): BP systolic 115–156; BP diastolic 84–103; PULSE 68–94; RESP 16; TEMP 36.1–36.6; O2SAT 93–98; BMI 28.7
--- NOTE | 2019-12-30 | CALC_PTH ---
PATIENT: KAIDEN MILLER LOC: [facility] [place] U#:[id number] AGE/SX: 59/M ROOM: RE12/30/[address]: Dr. Domingo Nelson MD : 1960 BED: DIS: 12/30/2019 SPEC #: [id number] RECD: 12/30/19 13:54 STATUS: ULISSES JOE #: [id number] WARREN: 12/30/19 00:[address]: Domingo Nelson DEPT: SURGICAL PATHOLOGY RECD BY: Esteban Rome ENTERED: 12/30/19 13:54 SP TYPE: Calculi OTHR DR: Dr. Antonella Junior MD Tissues: CALCULI Procedures: Surgery Specimen Level I HEADER OPERATION: Not noted PRE-OP DIAGNOSIS: Calculi TISSUE SUBMITTED: Calculi GROSS DIAGNOSIS Ureteral calculus, removal: Unremarkable calculus (gross diagnosis only). AM:rene 12/31/19 COMMENT The calculus is submitted in its entirety for chemical stone analysis. The results from this study will be reported separately. GROSS DESCRIPTION Received is one container labeled with the patient's name and designated ureteral calculi. The specimen consists of an irregular fragment of dark ramon calculus measuring 0.1 x 0.1 x 0.1 cm. The calculus is submitted in its entirety for chemical stone analysis. / AM:rene 12/30/19 CPT: 28345
[2019-12-30] MEDS: Lactated Ringers 1,000 ML 100 ML IV (06:40)
--- NOTE | 2019-12-30 07:00 | HP.PCM_ITS ---
Problem List (1) Ureteral calculus, left Status: Acute History of Present Illness Date of Admission: 12/30/19 Chief Complaint: left stent and stone The patient is a 59 year old male s/p laser of left stone and stent, plan to take to surgery to remove stent check kidney maybe laser other stones. Past Medical History Medical History: Medical History (Last Reviewed 12/30/19 @ 07:[address] Domingo Nelson MD) Heart disease I51.9 Allergies sulfamethoxazole [From Bactrim] Adverse Reaction (Verified 12/21/19 11:15) INTERACTS WITH BP AND HEART MEDS / DID NOT WORK trimethoprim [From Bactrim] Adverse Reaction (Verified 12/21/19 11:15) INTERACTS WITH BP AND HEART MEDS / DID NOT WORK Home Medications: Ambulatory Orders Medication Instructions Recorded Aspirin [Aspirin, Baby] 81 mg PO DAILY@0800 08/11/14 Carvedilol [Coreg (Beta Nawaf)] 3.125 mg PO BID 08/11/14 Lisinopril [Zestril] 5 mg PO DAILY 08/11/14 Rosuvastatin Calcium [Crestor] 40 mg PO QHS 10/20/19 Surgical History: Surgical History (Last Reviewed 12/02/19 @ 10:[address] Domingo Nelson MD) History of heart bypass surgery Z95.1 Surgical History: herniorrhaphy, - - nose, lip and thumb reattached. Hemmoroid drained x 2. Smoking Status: Former smoker - *Family History Maternal History Items: - - No family history of kidney stone in first-degree family relative. Review of Systems Constitutional: Denies: Chills, Fever, Weight Change HEENT: Denies: Head Aches, Sinus Congestion, Sinus Drainage Cardiovascular: Denies: Chest Pain, Palpitations Respiratory: Denies: Cough, Shortness of breath at rest, Sputum production Gastrointestinal: Denies: Abdominal Pain, Nausea, Vomiting Genitourinary: Denies: Dysuria Musculoskeletal: Denies: Joint Pain, Joint Tenderness Skin: Denies: Rash, Wounds Neurological: Denies: Numbness, Tingling, Focal weakness Psychiatric: Denies: Anxiety, Depression, Homicidal Ideations, Suicidal Ideati ons Hematologic/ Lymphatic: Denies: Easy Bruising, Easy Bleeding VTE Information - Inpt Only VTE Present on Admission: No - Physical Exam Vitals/I&O's: Vital Signs Temp Pulse Resp BP Pulse Ox 97.8 F 94 16 115/84 H 94 12/30/19 06:34 12/30/19 06:34 12/30/19 06:34 12/30/19 06:34 12/30/19 06:34 Oxygen Delivery Method Room Air Weight: 101.4 kg Body Mass Index (BMI) 28.7 General: Alert, Oriented x3, Cooperative HEENT: Atraumatic, PERRLA, EOMI, Normocephalic Neck: Supple, No JVD, Negative Carotid Bruits Lungs: Clear to auscultation, Normal air movement Cardiovascular: Regular rate, No murmurs Abdomen: Bowel Sounds Present, Soft, Non Tender Extremities: No edema, Capillary Refill Less than 3 Seconds Skin: No rashes, No breakdown Musculoskeletal: No Tenderness to Palpation of Joints or Extremities Neurological: Cranial nerves II-XII grossly intact Psych/Mental Status: Normal Affect, Appropriate Current Medications Cefazolin Sodium 2 gm/ Sodium (Chloride) 110 mls @ 150 mls/hr IV PREOP ONE Stop: 12/30/19 08:43 Lactated Ringer's () 1,000 mls @ 100 mls/hr IV .Q10H [facility] Last Admin: 12/30/19 06:40 Dose: 100 mls/hr Documented by: Assessment/Plan All Active Problems (Last Reviewed 12/02/19 @ 10:[address] Domingo Nelson MD) Ureteral calculus, left (Acute) Hydronephrosis of left kidney (Acute) Shoulder injury (Acute) CAD (coronary artery disease) (Acute) Chest pain (Acute) plan for ureteroscopy laser stones and stent removal.
[2019-12-30] MEDS: Cefazolin 2 GM in 0.9% Normal Saline 100 ML IV (07:55)
[2019-12-30] MEDS: Lidocaine 2% Jelly 1 APPLIC Tube (08:05)
[2019-12-30] MEDS: Lubricating Jelly 60 GM Tube 30 GM TOPICAL (08:05)
--- NOTE | 2019-12-30 08:20 | PCM.DC.URO ---
Discharge Diet: No Restrictions Discharge Activity: Return to Normal Activity, May Not Drive - for 2 days. Additional Activity Instructions:: Please be aware that pain medications may cause nausea. You should typically eat light foods as you take your pain medication. Pain medication may cause constipation, if this is a problem for you, please discuss with your doctor. Call your doctor if your incision/area has: Sudden Increased Bleeding Call your doctor if you observe: Fever of 101 or Higher Suture Line Care: Avoid Pulling/Pushing, Avoid Pinching/Bending Allergies/Adverse Reactions: Allergies sulfamethoxazole [From Bactrim] Adverse Reaction (Verified 12/21/19 11:15) INTERACTS WITH BP AND HEART MEDS / DID NOT WORK trimethoprim [From Bactrim] Adverse Reaction (Verified 12/21/19 11:15) INTERACTS WITH BP AND HEART MEDS / DID NOT WORK Medications to take at Discharge Aspirin [Aspirin, Baby] 81 mg PO DAILY@0800 08/11/14 Carvedilol [Coreg (Beta Nawaf)] 3.125 mg PO BID 08/11/14 Lisinopril [Zestril] 5 mg PO DAILY 08/11/14 Rosuvastatin Calcium [Crestor] 40 mg PO QHS 10/20/19 Ciprofloxacin [Cipro] 500 mg PO BID #6 tab 12/30/19 Oxycodone HCl/Acetaminophen [Percocet 5/325] 1 tablet PO Q4H PRN PRN 3 Days #10 tablet 12/30/19 The following prescriptions were given: Ciprofloxacin [Cipro] 500 mg PO BID #6 tab [facility] Oxycodone HCl/Acetaminophen [Percocet 5/325] 1 tablet PO Q4H PRN PRN 3 Days #10 tablet PRN Reason: Pain Transmission Status: Received by [facility] Primary Care Physician: Antonella Junior MD [Primary Care Provider] - Test Results: Test results from this visit will be discussed in further detail at your follow-up appointment, if applicable. Please Follow Up With: Domingo Nelson MD When: in 4 weeks, please call to make an appointment.
--- NOTE | 2019-12-30 08:20 | PCM.OPRPT ---
Problem List (1) Ureteral calculus, left Status: Acute Report of Operation Date of Procedure: 12/30/19 Pre-Operative Diagnosis: Left ureteral calculi Post-Operative Diagnosis: Same Surgery/Procedure Performed:: Cystoscopy left stent removal left ureteroscopy basket extraction of stones no stent placed Description of Surgical Findings:: 59-year-old male was taken back to the operating room at the smooth induction of general anesthesia he was placed in dorsolithotomy position the penis and testicles were prepped and draped in usual sterile fashion I went in the bladder with a 21 Mauritian rigid cystourethroscope grabbed the existing stent pulled out the meatus put a wire through the stent up into the left kidney and then over the wire I I went into the ureter with a flexible ureteroscope went all the way up to the kidney inspected the upper pole midpole lower pole the kidney no major fragments were seen in the kidney and then worked my way down the ureter and then I encountered some stones in the distal ureter I used a tipless basket and basket extracted the stones. And then we remove the ureteroscope the bladder was then drained patient acetic was reversed and he was taken back to the PACU in good condition. Successful ureteroscopy basket of stone stones and removal of prior stent. I will see him back in 1 month in the office for an ultrasound of his kidneys. Type of Anesthesia:: General, Local MAC Drains: none - Admit VTE Documentation VTE Present on Admission: No VTE Mechan Device Prophylaxis: SCD's
[2019-12-30] MEDS: Ketorolac 15 MG/ML Vial IV (08:39)
== END 2019-12-30 09:14 | disposition home or self-care (01) ==
LOC: SDC 05:59 → AC 06:00
PROVIDERS: Anesthesiology; PCP Family Medicine; Referring Provider Urology; Visit Provider Urology
PROC: 0TJ98ZZ Inspection of Ureter, Via Natural or Artificial Opening Endoscopic (ICD-10-PCS; CPT 52352; principal; 2019-12-30 07:50)
DX: N20.1 Calculus of ureter (principal); K21.9 Gastro-esophageal reflux disease without esophagitis; E78.00 Pure hypercholesterolemia, unspecified; I25.2 Old myocardial infarction; I25.10 Atherosclerotic heart disease of native coronary artery without angina pectoris; Z95.5 Presence of coronary angioplasty implant and graft; Z95.1 Presence of aortocoronary bypass graft; Z87.442 Personal history of urinary calculi; Z11.59 Encounter for screening for other viral diseases; Z79.899 Other long term (current) drug therapy; Z87.891 Personal history of nicotine dependence
CPT/HCPCS: 52352; 82360; 87635; 88300; C9803; J7120; C1769; J2405; U0003

== ENCOUNTER → 2020-02-10 | Outpatient (CLI) ==
--- NOTE | 2020-02-10 16:52 | CT_ITS ---
STUDY: CT ABDOMEN AND PELVIS WITHOUT CONTRAST REASON FOR EXAM: Male, 59 years old. HISTORY OF KIDNEY STONES. RECENT LASER AND STONE REMOVAL ON LEFT URETER 12/30/19 RADIATION DOSAGE (If Supplied By Facility): CTDIvol = ( 14.88 ) mGy, DLP = ( 769.40 ) mGycm TECHNIQUE: Transaxial images were obtained from the dome of the diaphragm to the symphysis pubis without oral contrast, and without intravenous contrast. Sagittal and coronal images were reconstructed. Individualized dose optimization techniques were used for this CT. COMPARISON: Comparison is made with prior examination dated 12/02/2019. FINDINGS: The visualized lung bases are unremarkable. The visualized portions of the heart are within normal limits. Scattered low density cysts are seen throughout the liver. The largest measures 2.3 cm x 2.4 cm. This is along the inferior medial aspect of the right lobe of the liver. Normal gallbladder and extrahepatic biliary system. Normal spleen. Normal pancreas. Normal bilateral adrenal glands. Stable 7 mm conquest in the lower pole calyx of the right kidney. Stable 2.1 cm x 2.4 cm cyst in the inferior lateral aspect of the right kidney. Mild residual left hydronephrosis. This has improved as compared to prior study. There is less dilatation of the left ureter. The previously seen calculus in the distal portion of the left ureter at the level of the uterovesical junction has decreased in size. Tiny fragments are seen. There is a moderate-sized hiatal hernia. Normal small intestine. There are multiple colonic diverticula consistent with diverticulosis. The appendix is visualized and appears normal. Normal abdominal aorta. Normal inferior vena cava. Normal retroperitoneum. Normal urinary bladder. Stable enlargement of the pelvis with central calcification. Calcified phleboliths are seen within the pelvis. Normal abdominal wall. 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 CT/Abdomen/Pelvis without Cont IMPRESSION: Tiny fragments of the calculi are seen at the left ureterovesical junction with the decreased left-sided hydronephrosis and hydroureter. The remainder of the examination is unchanged. Electronically Signed: Pernell Sin, at 9:11 EDT , Service support ,
== END | disposition home or self-care (01) ==
LOC: CT 16:51
PROVIDERS: PCP Family Medicine; Referring Provider Urology; Visit Provider Urology
DX: N20.1 Calculus of ureter (principal)
CPT/HCPCS: 74176

== ENCOUNTER 2020-02-12 05:27 | Day surgery (SDC) | payer MEDICAID, SELFPAY ==
[2019-12-30 06:34] VITALS: BMI 28.7
[2020-02-05 09:52] LABS: Hematocrit 40.7 % (40-54); Hemoglobin 12.8 g/dL (13.0-16.5); Mean Corp Hgb Conc 31.4 g/dL (32-36); Mean Corpuscular Hgb 26.9 pg (27.0-32.0); Mean Corpuscular Volume 85.5 fL (80-94); Mean Platelet Vol. 9.1 fl (6.2-12.0); Platelet Count 335 K/mm3 (150-450); RBC Distribution Width CV 13.5 % (11.6-14.6); RBC Distribution Width SD 42.1 fl (35.1-43.9); Red Blood Count 4.76 M/mm3 (4.6-6.2); White Blood Count 6.2 K/mm3 (4.4-11.0)
[2020-02-05 10:35] LABS: Anion Gap 3 (5-15); BUN 15 mg/dL (7-18); BUN/Creat Ratio 12.7 RATIO (10-20); Calcium,Total 8.8 mg/dL (8.5-10.1); Chloride 109 mmol/L (98-107); Creatinine, Serum 1.18 mg/dL (0.70-1.30); EST Glomerular Filtration Rate 67 mL/min (>60); Est Glom Filt Rate - Afr Amer 81 mL/min (>60); Glucose 92 mg/dL (74-106); Potassium 4.2 mmol/L (3.5-5.1); Sodium Level 140 mmol/L (136-145)
[2020-02-12] VITALS (7 sets, daily range): BP systolic 118–127; BP diastolic 79–95; PULSE 48–59; RESP 16; TEMP 36.2–36.6; O2SAT 93–97; BMI 29.2
--- NOTE | 2020-02-12 | CALC_PTH ---
PATIENT: KAIDEN MILLER LOC: [facility] [place] U#:[id number] AGE/SX: 59/M ROOM: RE02/12/[address]: Dr. Domingo Nelson MD : 1960 BED: DIS: 02/12/2020 SPEC #: [id number] RECD: 02/12/20 09:46 STATUS: ULISSES JOE #: [id number] WARREN: 02/12/20 00:[address]: Domingo Nelson DEPT: SURGICAL PATHOLOGY RECD BY: Esteban Rome ENTERED: 02/12/20 09:46 SP TYPE: Calculi OTHR DR: Dr. Antonella Junior MD Tissues: CALCULI Procedures: Surgery Specimen Level I HEADER OPERATION: Right ESWL, left cysto, ureteroscopy, basket stone retrieval PRE-OP DIAGNOSIS: Left ureteral calculi, right kidney calculus TISSUE SUBMITTED: Left ureteral calculus GROSS DIAGNOSIS A fragment of stone, clinically left ureteral calculus, submitted for analysis. MARTHA:rene 02/12/20 COMMENT The calculus is submitted in its entirety for chemical stone analysis. The results from this study will be reported separately. GROSS DESCRIPTION Received in fixative is one container labeled with the patient's name and designated left ureteral calculus. The specimen consists of a fragment of black stone measuring 0.1 cm in greatest dimension. The specimen is submitted for stone analysis. / MARTHA:rene 02/12/20 CPT: 01221
--- NOTE | 2020-02-12 05:38 | RAD_ITS ---
STUDY: X-RAY - ABDOMEN/PELVIS REASON FOR EXAM: Male, 59 years old. POSSIBLE KIDNEY STONE TECHNIQUE: Two AP supine views of the abdomen and pelvis. COMPARISON: None. FINDINGS: Normal visualized lung bases. There is an unremarkable bowel gas pattern. There is no demonstrated free abdominal air. The visualized liver, spleen are grossly normal in size and morphology. There is 7 mm stone in the lower part of the right kidney. Normal soft tissue structures. Normal visualized osseous structures. RAD/Abdomen Single View IMPRESSION: There is 7 mm stone in the lower part of the right kidney. Electronically Signed: Tera Dunn, at 7:45 EDT Tel , Service support ,
[2020-02-12] MEDS: Lactated Ringers 1,000 ML 100 ML IV ×2 (06:18→09:22)
--- NOTE | 2020-02-12 07:32 | PCM.HP.STD ---
Problem List (1) Ureteral calculus, left Status: Acute History of Present Illness Date of Admission: 02/12/20 Chief Complaint: Left ureteral calculi and right renal calculi The patient is a 59 year old male who underwent treatment of a large stone in the distal left ureter was pretty impacted stone CT scan was done to evaluate and was found to have some still fragment stuck in the distal left ureter some mild hydronephrosis. He also has a stone in the right side. We plan to proceed with left ureteroscopy basket extraction possible balloon dilation and may be a stent on the left side and then will still treat the stone on the right side probably will not need a stent in the right side. Past Medical History Medical History: Medical History (Last Reviewed 12/30/19 @ 07:[address] Domingo Nelson MD) Heart disease I51.9 Allergies sulfamethoxazole [From Bactrim] Adverse Reaction (Verified 02/12/20 05:56) INTERACTS WITH BP AND HEART MEDS / DID NOT WORK trimethoprim [From Bactrim] Adverse Reaction (Verified 02/12/20 05:56) INTERACTS WITH BP AND HEART MEDS / DID NOT WORK Home Medications: Ambulatory Orders Medication Instructions Recorded Aspirin [Aspirin, Baby] 81 mg PO DAILY@0800 08/11/14 Carvedilol [Coreg (Beta Nawaf)] 3.125 mg PO BID 08/11/14 Lisinopril [Zestril] 5 mg PO DAILY 08/11/14 Rosuvastatin Calcium [Crestor] 40 mg PO QHS 10/20/19 Surgical History: Surgical History (Last Reviewed 12/02/19 @ 10:[address] Domingo Nelson MD) History of heart bypass surgery Z95.1 Surgical History: herniorrhaphy, - - nose, lip and thumb reattached. Hemmoroid drained x 2. Smoking Status: Former smoker Tobacco Use: Non-smoker - *Family History Maternal History Items: - - No family history of kidney stone in first-degree family relative. Review of Systems Constitutional: Denies: Chills, Fever, Weight Change HEENT: Denies: Head Aches, Sinus Congestion, Sinus Drainage Cardiovascular: Denies: Chest Pain, Palpitations Respiratory: Denies: Cough, Shortness of breath at rest, Sputum production Gastrointestinal: Denies: Abdominal Pain, Nausea, Vomiting Genitourinary: Denies: Dysuria Musculoskeletal: Denies: Joint Pain, Joint Tenderness Skin: Denies: Rash, Wounds Neurological: Denies: Numbness, Tingling, Focal weakness Psychiatric: Denies: Anxiety, Depression, Homicidal Ideations, Suicidal Ideations Hematologic/ Lymphatic: Denies: Easy Bruising, Easy Bleeding VTE Information - Inpt Only VTE Present on Admission: No VTE Mechan Device Prophylaxis: SCD's - Physical Exam Vitals/I&O's: Vital Signs Temp Pulse Resp BP Pulse Ox 97.2 F L 55 L 16 118/79 97 02/12/20 05:56 02/12/20 05:56 02/12/20 05:56 02/12/20 05:56 02/12/20 05:56 Oxygen Delivery Method Room Air Weight: 103.3 kg Body Mass Index (BMI) 29.2 General: Alert, Oriented x3, Cooperative HEENT: Atraumatic, PERRLA, EOMI, Normocephalic Neck: Supple, No JVD, Negative Carotid Bruits Lungs: Clear to auscultation, Normal air movement Cardiovascular: Regular rate, No murmurs Abdomen: Bowel Sounds Present, Soft, Non Tender Extremities: No edema, Capillary Refill Less than 3 Seconds Skin: No rashes, No breakdown Musculoskeletal: No Tenderness to Palpation of Joints or Extremities Neurological: Cranial nerves II-XII grossly intact Psych/Mental Status: Normal Affect, Appropriate Current Medications Cefazolin Sodium 2 gm/ Sodium (Chloride) 110 mls @ 150 mls/hr IV PREOP ONE Stop: 02/12/20 08:13 Lactated Ringer's () 1,000 mls @ 100 mls/hr IV .Q10H GRACIELA Last Admin: 02/12/20 06:18 Dose: 100 mls/hr Documented by: Assessment/Plan All Active Problems (Last Reviewed 12/30/19 @ 07:[address] Domingo Nelson MD) Ureteral calculus, left (Acute) Hydronephrosis of left kidney (Acute) Shoulder injury (Acute) CAD (coronary artery disease) (Acute) Chest pain (Acute) Plan to proceed with left ureteroscopy basket extraction of stone fragments possible stent in the left side depending on the findings and also will do shockwave lithotripsy on the right side hopefully we will not have to put a stent on the right.
--- NOTE | 2020-02-12 07:36 | DCINST_ITS ---
Discharge Diet: Light diet - advance as tolerated Discharge Activity: May not drive while taking narcotic pain medications. Suture Line Care: Avoid Pulling/Pushing, Avoid Pinching/Bending Allergies/Adverse Reactions: Allergies sulfamethoxazole [From Bactrim] Adverse Reaction (Verified 02/12/20 05:56) INTERACTS WITH BP AND HEART MEDS / DID NOT WORK trimethoprim [From Bactrim] Adverse Reaction (Verified 02/12/20 05:56) INTERACTS WITH BP AND HEART MEDS / DID NOT WORK Medications to take at Discharge Aspirin [Aspirin, Baby] 81 mg PO DAILY@0800 08/11/14 Carvedilol [Coreg (Beta Nawaf)] 3.125 mg PO BID 08/11/14 Lisinopril [Zestril] 5 mg PO DAILY 08/11/14 Rosuvastatin Calcium [Crestor] 40 mg PO QHS 10/20/19 Ciprofloxacin [Cipro] 500 mg PO BID #10 tab 02/12/20 Hydrocodone/Acetaminophen [[place] 5-325 Tablet] 1 each PO Q4H PRN PRN 5 Days #14 tablet 02/12/20 The following prescriptions were given: Ciprofloxacin [Cipro] 500 mg PO BID #10 tab [facility]: [facility] Hydrocodone/Acetaminophen [[place] 5-325 Tablet] 1 each PO Q4H PRN PRN 5 Days #14 tablet PRN Reason: Pain Score 1-10 Transmission Status: Received by LEL[facility] REID Orders to be completed after discharge: Abdomen Single View [RAD] Time Frame: 02/12/20, Facility: [facility], Location: [facility] Primary Care Physician: Antonella Junior MD [Primary Care Provider] - Test Results: Test results from this visit will be discussed in further detail at your follow- up appointment, if applicable. Please Follow Up With: Domingo Nelson MD When: in 2 weeks, please call to make an appointment.
[2020-02-12] MEDS: Cefazolin 2 GM in 0.9% Normal Saline 100 ML IV (07:38)
--- NOTE | 2020-02-12 08:12 | OP.PCM_ITS ---
Problem List (1) Ureteral calculus, left Status: Acute Report of Operation Date of Procedure: 02/12/20 Pre-Operative Diagnosis: Right kidney stone and distal left ureteral stricture and stones Post-Operative Diagnosis: Same Surgery/Procedure Performed:: Cystoscopy balloon dilation of the distal left ureter for stricture and ureteroscopy and basket extraction of stone fragments left stent placement. Right extracorporeal shockwave lithotripsy Description of Surgical Findings:: 59-year-old male who I took care of for stone in the distal left ureter had very large impacted hard stone it was stuck in the ureter the first surgery was extremely difficult can you get the wire past the stone and had an impacted stone for a long time event emergency room was multiple times seeking care f inally was diagnosed with a stone and took the patient to surgery. This point we did a CAT scan we found that he had a stricture of the distal ureter on the left side not surprising giving a hard and impacted the prior stone was so today working to balloon dilate the stricture and place this stent on the left side. He was taken back to the operating room after smooth induction of general anesthesia he was placed in dorsolithotomy position went into the bladder with a 21 [place] rigid cystourethroscope identified the left ureteral orifice advanced a wire passed this up into the left kidney and then advanced a balloon dilator is a 15 [place] 10 cm balloon dilator and balloon dilated the distal left ureter I then left the wire in place and over the wire I went with a SlimLine ureteroscope and encountered some small fragments pulled these fragments out could see a lot of inflammation in the distal ureter but is fairly open but I am afraid that if I do not leave a stent in it might scarred down so we loaded up a stent and put a 6 [place] by 26 cm stent on the left side this should allow the left ureter to heal open so does not stricture down the long-term. The bladder was then drained we then found the stone in the right kidney and proceeded with a right shockwave lithotripsy and we treated the stone with a total of 3000 shockwaves at a rate of 90/min between 5 to 7 kV at the end of the treatment the stone of broken up really well and we decided not to leave a stent on the right side and the patient's anesthesia is currently being reversed. I spoke to the and let her know that he will need a stent for at least a month and then in the office will get the stent out with a scope. Type of Anesthesia:: General Drains: stent left - Admit VTE Documentation VTE Present on Admission: No
[2020-02-12] MEDS: Ketorolac 15 MG/ML Vial IV (09:23)
[2020-02-23 15:55] LABS: Source LEFT URETER
== END 2020-02-12 10:03 | disposition home or self-care (01) ==
LOC: SDC 05:27 → AC 05:28
PROVIDERS: Anesthesiology; PCP Family Medicine; Referring Provider Urology; Visit Provider Urology
PROC: (CPT 50590; principal; 2020-02-12 07:20)
DX: N13.2 Hydronephrosis with renal and ureteral calculous obstruction (principal); I25.2 Old myocardial infarction; E78.00 Pure hypercholesterolemia, unspecified; Z95.1 Presence of aortocoronary bypass graft; Z95.5 Presence of coronary angioplasty implant and graft; Z87.442 Personal history of urinary calculi; Z20.828 Contact with and (suspected) exposure to other viral communicable diseases; Z79.899 Other long term (current) drug therapy; Z87.891 Personal history of nicotine dependence
CPT/HCPCS: 00918; 52344; 52352; 52353; 52356; 36415; 74018; 80048; 82360; 85027; 87635; 88300; 93005; C9803; J7120; C1726; C1769; C2617; J2405; U0003

== ENCOUNTER → 2020-03-07 07:47 | Outpatient (CLI) | payer MEDICAID, SELFPAY ==
[2020-02-12 05:56] VITALS: BMI 29.2
--- NOTE | 2020-03-07 07:49 | RAD_ITS ---
STUDY: X-RAY - ABDOMEN/PELVIS REASON FOR EXAM: Male, 59 years old. follow up kidney stones TECHNIQUE: Frontal view of the abdomen COMPARISON: None. FINDINGS: Left ureteral stent has distended and is located predominantly in the urinary bladder. There are no urinary calculi. There is no intestinal obstruction. Soft tissue shadows are unremarkable. Osseous structures are intact. RAD/Abdomen Single View IMPRESSION: Descent of left ureteral stent into the bladder. Urology referral is advised. Electronically Signed: Jeb Haji, at 17:35 EST Tel , Service support ,
== END ==
PROVIDERS: PCP Family Medicine; Referring Provider Urology; Visit Provider Urology
DX: N20.0 Calculus of kidney (principal)
CPT/HCPCS: 74018

== ENCOUNTER → 2020-04-11 14:11 | Outpatient (CLI) | payer MEDICAID, SELFPAY ==
[2020-02-12 05:56] VITALS: BMI 29.2
[2020-04-11 15:26] LABS: Creatinine, Serum 1.13 mg/dL (0.70-1.30); EST Glomerular Filtration Rate 70 mL/min (>60); Est Glom Filt Rate - Afr Amer 85 mL/min (>60)
== END ==
PROVIDERS: PCP Family Medicine; Referring Provider Urology; Visit Provider Urology
DX: Z87.442 Personal history of urinary calculi (principal)
CPT/HCPCS: 36415; 82565

== ENCOUNTER → 2021-01-25 09:29 | Outpatient (CLI) | payer MEDICAID, SELFPAY ==
[2021-01-25 10:19] LABS: Hematocrit 45.7 % (40-54); Hemoglobin 15.3 g/dL (13.0-16.5); Mean Corp Hgb Conc 33.5 g/dL (32-36); Mean Corpuscular Hgb 29.4 pg (27.0-32.0); Mean Corpuscular Volume 87.7 fL (80-94); Platelet Count 284 K/mm3 (150-450); RBC Distribution Width CV 13.7 % (11.6-14.6); RBC Distribution Width SD 44.5 fl (35.1-43.9); Red Blood Count 5.21 M/mm3 (4.6-6.2); White Blood Count 7.8 K/mm3 (4.4-11.0)
[2021-01-25 11:13] LABS: ALB/GLOB Ratio 1.1 RATIO (0.9-2.4); AST(SGOT) 23 U/L (15-37); Alanine Aminotransfer ALT/SGPT 29 U/L (16-61); Albumin, Serum 3.6 g/dL (3.2-5.0); Alkaline Phosphatase 81 U/L (45-117); Anion Gap 4 (5-15); BUN 16 mg/dL (7-18); BUN/Creat Ratio 12.5 RATIO (10-20); Chloride 105 mmol/L (98-107); Cholesterol 123 mg/dL (200); Creatinine, Serum 1.28 mg/dL (0.70-1.30); EST Glomerular Filtration Rate 61 mL/min (>60); Est Glom Filt Rate - Afr Amer 74 mL/min (>60); Globulin 3.4 g/dL (2.2-4.2); Glucose 104 mg/dL (74-106); High Density Lipoprotein 38 mg/dL; Potassium 4.2 mmol/L (3.5-5.1); Sodium Level 138 mmol/L (136-145); Triglycerides 138 mg/dL; Very Low Density Lipoprotein 28 mg/dL (5-40)
== END ==
PROVIDERS: Internal Medicine Cardiovascular Disease; PCP Family Medicine; Referring Provider Family Medicine; Visit Provider Family Medicine
DX: E78.00 Pure hypercholesterolemia, unspecified (principal); I25.10 Atherosclerotic heart disease of native coronary artery without angina pectoris; U07.1 COVID-19
CPT/HCPCS: 36415; 80053; 80061; 85027; 86769

== ENCOUNTER → 2022-06-26 | Outpatient (CLI) | payer MEDICAID, SELFPAY ==
[2022-06-26 10:22] LABS: ALB/GLOB Ratio 1.1 RATIO (0.9-2.4); AST(SGOT) 20 U/L (15-37); Alanine Aminotransfer ALT/SGPT 23 U/L (16-61); Albumin, Serum 3.8 g/dL (3.2-5.0); Alkaline Phosphatase 81 U/L (45-117); Anion Gap 5 (5-15); BUN 15 mg/dL (7-18); BUN/Creat Ratio 13.8 RATIO (10-20); Calcium,Total 8.9 mg/dL (8.5-10.1); Chloride 105 mmol/L (98-107); Cholesterol 127 mg/dL (200); Creatinine, Serum 1.09 mg/dL (0.70-1.30); EST Glomerular Filtration Rate 73 mL/min (>60); Est Glom Filt Rate - Afr Amer 88 mL/min (>60); Globulin 3.5 g/dL (2.2-4.2); Glucose 108 mg/dL (74-106); High Density Lipoprotein 38 mg/dL; Potassium 4.3 mmol/L (3.5-5.1); Protein, Total 7.3 g/dL (6.4-8.2); Sodium Level 137 mmol/L (136-145); Triglycerides 158 mg/dL; Very Low Density Lipoprotein 32 mg/dL (5-40)
== END | disposition home or self-care (01) ==
LOC: LAB 09:23
PROVIDERS: PCP Family Medicine; Referring Provider Internal Medicine Cardiovascular Disease; Visit Provider Internal Medicine Cardiovascular Disease
DX: E78.00 Pure hypercholesterolemia, unspecified (principal)
CPT/HCPCS: 36415; 80053; 80061

== ENCOUNTER → 2022-06-29 | Outpatient (CLI) | payer MEDICAID, SELFPAY ==
--- NOTE | 2022-06-29 13:58 | ECHOCS_ITS ---
Reason For Study: Isch CMP Procedure This was a 2D Doppler, Color Flow transthoracic echocardiogram. The study was technically difficult. Contrast injection was performed. Exam performed in department. Left Ventricle Mildly dilated left ventricle. The left ventricular ejection fraction is 40 %. Normal diastology for age. Severe septal and apical hypokinesis. Right Ventricle Normal right ventricle. Atria The left and right atria are normal. Mitral Valve Trivial mitral valve insufficiency. Tricuspid Valve Trivial tricuspid valve insufficiency. Normal pulmonary artery pressure. Aortic Valve Mild (1+) aortic valve insufficiency. Pulmonic Valve The pulmonic valve is not well visualized. Great Vessels Mildly dilated aortic root. Pericardium/Pleural Trivial pericardial effusion. Medication 20 gauge I.V. with prn adaptor inserted into right arm. Diluted definity 5ml given slow IV push to enhance endocardial definition. MMode/2D Measurements & Calculations LVIDd: 5.6 cm IVSd: 0.96 cm Ao root diam: 3.9 cm LVIDs: 4.5 cm LVPWd: 1.0 cm LA dimension: 3.6 cm RVDd: 4.0 cm FS: 20.1 % LAV(MOD-bp): 44.0 ml LVAd ap4: 45.0 cm2 SV(MOD-sp4): 81.6 ml LAV(MOD-bp) Indexed: 19.5 ml/m2 LVLd ap4: 9.4 cm LAV(MOD-sp2): 30.4 ml EDV(MOD-sp4): 174.8 ml LAV(MOD-sp4): 61.4 ml EDV(sp4-el): 183.2 ml LVAs ap4: 30.3 cm2 LVLs ap4: 8.4 cm ESV(MOD-sp4): 93.3 ml ESV(sp4-el): 92.4 ml EF(MOD-sp4): 46.6 % EF(sp4-el): 49.5 % SV(sp4-el): 90.7 ml LA A4 area: 20.5 cm2 RA A4 area: 17.5 cm2 Time Measurements MV dec time: 0.18 sec Doppler Measurements & Calculations MV E max matt: 53.6 cm/sec Lat Peak E' Matt: 13.9 cm/sec Med Peak E' Matt: 10.5 cm/sec MV A max matt: 50.3 cm/sec E/E' lat: 3.8 E/E' med: 5.1 MV E/A: 1.1 MV V2 max: 60.2 cm/sec MV P1/2t max matt: 60.7 cm/sec Ao V2 max: 76.0 cm/sec MV max P.4 mmHg MV P1/2t: 69.4 msec Ao max P.3 mmHg MV V2 mean: 33.8 cm/sec Ao V2 mean: 50.7 cm/sec MV mean P.54 mmHg MV dec slope: 256.2 cm/sec2 Ao mean P.2 mmHg MV V2 VTI: 25.4 cm MVA(P1/2t): 3.2 cm2 Ao V2 VTI: 16.2 cm AV (velocity ratio): 0.94 LV V1 max: 73.6 cm/sec PA V2 max: 70.4 cm/sec TR max matt: 229.7 cm/sec LV V1 max P.2 mmHg PA V2 mean: 52.6 cm/sec TR max P.1 mmHg LV V1 mean P.2 mmHg LV V1 mean: 52.6 cm/sec LV V1 VTI: 15.2 cm ECHO/Echo Complete W/ Contrast Interpretation Summary Mildly dilated left ventricle. The left ventricular ejection fraction is 40%. Severe septal and apical hypokin esis. Mild (1+) aortic valve insufficiency. Mildly dilated aortic root. Ordering Physician: Александр Haddad Referring Physician: Antonella Junior Performed By: Elgin Balderrama RCS
== END | disposition home or self-care (01) ==
LOC: CVS 13:56
PROVIDERS: PCP Family Medicine; Visit Provider Internal Medicine Cardiovascular Disease
DX: I25.10 Atherosclerotic heart disease of native coronary artery without angina pectoris (principal); I25.5 Ischemic cardiomyopathy
CPT/HCPCS: 93306; Q9957; A4216; C8929

== ENCOUNTER → 2024-09-11 | Outpatient (CLI) | payer MEDICAID, SELFPAY ==
[2024-09-11 09:51] LABS: Hematocrit 46.5 % (40-54); Hemoglobin 15.8 g/dL (13.0-16.5); Mean Corpuscular Hgb 29.6 pg (27.0-32.0); Mean Corpuscular Volume 87.1 fL (80-94); Mean Platelet Vol. 9.4 fl (6.2-12.0); Platelet Count 314 K/mm3 (150-450); RBC Distribution Width CV 13.2 % (11.6-14.6); RBC Distribution Width SD 41.7 fl (35.1-43.9); Red Blood Count 5.34 M/mm3 (4.6-6.2); White Blood Count 8.3 K/mm3 (4.4-11.0)
[2024-09-11 10:21] LABS: ALB/GLOB Ratio 1.6 RATIO (0.9-2.4); AST(SGOT) 28 U/L (<=37); Alanine Aminotransfer ALT/SGPT 22 U/L (<=46); Albumin, Serum 4.4 g/dL (3.4-4.8); Alkaline Phosphatase 79 U/L (40-129); Anion Gap 10 (5-15); BUN 11 mg/dL (4-19); BUN/Creat Ratio 10.5 RATIO (10-20); Calcium,Total 9.2 mg/dL (7.6-11.0); Carbon Dioxide 23.6 mmol/L (21.0-32.0); Chloride 107 mmol/L (98-108); Cholesterol 122 mg/dL (<=200); Creatinine, Serum 1.07 mg/dL (0.70-1.20); EST Glomerular Filtration Rate 77 (>60); Globulin 2.7 g/dL (2.2-4.2); Glucose 96 mg/dL (70-99); High Density Lipoprotein 33 mg/dL; Low Density Lipoprotein Calc. 62 mg/dL; Potassium 4.6 mmol/L (3.3-5.1); Protein, Total 7.1 g/dL (5.9-8.4); Sodium Level 140 mmol/L (133-145); Triglycerides 133 mg/dL; Very Low Density Lipoprotein 27 mg/dL (5-40); cholesterol:hdl ratio screen 3.67
== END | disposition home or self-care (01) ==
LOC: LAB 08:20
PROVIDERS: PCP Family Medicine; Referring Provider Internal Medicine Cardiovascular Disease; Visit Provider Internal Medicine Cardiovascular Disease
DX: I25.10 Atherosclerotic heart disease of native coronary artery without angina pectoris (principal)
CPT/HCPCS: 36415; 80053; 80061; 85027